=== PATIENT | male | born 1970 | race Caucasian/White ===

== ENCOUNTER 2023-08-15 11:37 | Emergency (ER) | payer BC, SELFPAY ==
[2023-08-15] VITALS (9 sets, daily range): BP systolic 116–130; BP diastolic 78–88; PULSE 63–78; RESP 18; TEMP 36.4; O2SAT 89–98; BMI 26.4
--- NOTE | 2023-08-15 12:18 | CRLHL7_ITS ---
For Patients: As a result of the Century Cures Act, medical imaging exams and procedure reports are released immediately into your electronic medical record. You may view this report before your referring provider. If you have questions, please contact your health care provider. INDICATION: Chest pain. Shortness of breath. TECHNIQUE: Chest 2 views. COMPARISON: None. FINDINGS: Cardiovascular and mediastinum: Heart size and vasculature are normal in caliber and appearance. Lungs and pleural spaces: Lungs are clear. No sign of infiltrate or mass. No sign of pleural effusion. No pneumothorax. Bones and soft tissues: No significant findings. IMPRESSION: No acute or significant findings. Dictated by Jermaine Cloud MD @ 08/15/2023 12:59:26 PM (Electronically Signed)
--- NOTE | 2023-08-15 12:19 | ED_ITS ---
HPI - General Adult General Chief complaint: Chest Pain Stated complaint: Chest pain, shortness of breath, LT hand numbness Time Seen by Provider: 08/15/23 12:11 Source: patient Mode of arrival: ambulatory Limitations: no limitations History of Present Illness HPI narrative: 53-year-old male coming in today complaining of chest pain going on for few weeks. Patient states that the pain is dull, present about 70% of the time, located on the left side of the chest. Patient states that he developed shortness of breath today after he talked to the triage nurse who told he might be having a heart attack. He states he has not felt short of breath aside from that. 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 He states that he thinks he forgets about it when he is working. He notices it when he gets home after a long day of work. Does not wake him up at night. He denies coughing. He denies any abdominal discomfort. He denies change in his pain with eating. He states that he is a smoker and when he smokes the pain seems to get worse. Past medical history significant for hyperlipidemia, not on any medications. He does smoke 5-10 cigarettes per day and has smoked for many years. Mother of lung cancer for here. He denies any family history of blood clots. He denies any recent traveling or long car rides. He denies any recent surgery. Related Data Home Medications ?Medication ?Instructions ?Recorded ?Confirmed oxycodone 5 mg tablet mg PO 08/15/23 Allergies Allergy/AdvReac Type Severity Reaction Status Date / Time No Known Drug Allergies Allergy Verified 08/15/23 11:58 Review of Systems Status of ROS: Reports: 10 or more systems reviewed and unremarkable except as noted in History and below PFSH PFS Social History Smoking Status: Current every day smoker How often do you have a drink containing alcohol: monthly or less AUDIT-C Alcohol total score: 1 Non-prescribed substance use: marijuana (any form) Exam Narrative: Exam Narrative: Well-nourished well-developed patient in no acute distress. Alert and oriented. Answers questions appropriately. Mood and affect are appropriate. Thoughts are goal oriented and rational. No tangential or magical thinking noted. Patient speaks in full sentences without needing to catch his breath. HEENT: Normocephalic atraumatic. Pupils are equally round reactive to light. Extraocular muscles are intact. Conjunctivae are moist without any icterus noted. Moist mucous membranes. Posterior pharynx is normal. Neck is soft without any lymphadenopathy or thyromegaly. No masses are appreciated. Cardiovascular: Heart is regular rate and rhythm S1 and S2 are present without any murmurs. Lungs: Clear to auscultation bilaterally no wheezes rhonchi or rales are appreciated. Patient takes deep breaths without any discomfort. I cannot reproduce his pain with palpation. Abdomen: Soft and nontender nondistended with normal bowel sounds. No guarding or rebound. No masses or organomegaly appreciated. Extremities: Bilateral lower extremities are without edema. Normal DP and PT pulses. Skin: Well perfused without any obvious rashes. Const: Vital Signs, click to edit/add: Vital Signs - 24 hr 08/15/23 11:56 08/15/23 12:29 08/15/23 12:30 Temperature 97.6 F Pulse Rate 63 67 Pulse Rate [Pulse Oximeter] 68 Respiratory Rate 18 Blood Pressure Blood Pressure [Ri ght Upper Arm] 129/82 Pulse Oximetry 98 92 89 Oxygen Delivery Me thod Room Air 08/15/23 12:32 08/15/23 12:39 Temperature Pulse Rate 69 Pulse Rate [Pulse Oximeter] Respiratory Rate Blood Pressure 130/88 Blood Pressure [Ri ght Upper Arm] Pulse Oximetry 94 Oxygen Delivery Me thod Course Course ED Course: Differential diagnoses includes coronary artery disease, pneumothorax, PE, GERD, pericarditis, chest wall pain. EKG, read by me, shows normal sinus rhythm with a pulse of 70. Blood work, including CBC, D-dimer, chemistries, LFTs, troponin, CRP, lipase, was entirely normal. Chest x-ray, read by me, does not show any acute pathology. Vital Signs Vital signs: Initial Vital Signs Respiratory Effort Normal 08/15/23 11:55 Respiratory Depth Normal 08/15/23 11:55 Respiratory Pattern Normal 08/15/23 11:55 Vital Signs Temperature 97.6 F 08/15/23 11:56 Pulse Rate 68 08/15/23 11:56 Respiratory Rate 18 08/15/23 11:56 Blood Pressure 129/82 08/15/23 11:56 Pulse Oximetry 98 08/15/23 11:56 Oxygen Delivery Method Room Air 08/15/23 11:56 Temperature 97.6 F 08/15/23 11:56 Pulse Rate 69 08/15/23 12:39 Respiratory Rate 18 08/15/23 11:56 Blood Pressure 130/88 08/15/23 12:32 Pulse Oximetry 94 08/15/23 12:39 Oxygen Delivery Method Room Air 08/15/23 11:56 Medical Decision Making MDM Narrative Medical decision making narrative: 53-year-old male with atypical chest pain going on for a couple of weeks. No evidence of any life-threatening pathology found on workup today. Recommend follow-up with primary care provider. Lab Data Lab results reviewed: Yes I reviewed the patient's lab results Labs: Lab Results 08/15/23 Range/Units 12:25 WBC 7.24 (4.50-11.00) K/uL RBC 4.61 (4.30-5.90) m/uL Hgb 14.5 (13.5-17.5) gm/dL Hct 42.3 (37.0-53.0) % MCV 92 (80-100) fL MCH 32 (26-34) pg MCHC 34 (32-36) gm/dL RDW Coeff of [place] 12.8 (11.5-15.5) % Plt Count 240 (140-440) K/uL Neut % (Auto) 65.7 (42.0-72.0) % Lymph % (Auto) 24.4 (20-44) % [place] % (Auto) 7.6 (0.0-11.0) % Eos % (Auto) 1.7 (0.0-7.0) % Baso % (Auto) 0.3 (0.0-3.0) % Neut # (Auto) 4.76 (1.7-7.0) K/uL Lymph # (Auto) 1.77 (0.90-2.90) K/uL [place] # (Auto) 0.60 (0.00-0.90) K/UL Eos # (Auto) 0.12 (0.00-0.50) K/uL Baso # (Auto) 0.02 (0.00-0.30) K/uL Abs Immat Gran (auto) 0.02 (0.00-0.30) K/uL Imm/Tot Granulo (auto) 0.3 % D-Dimer Quant (PE/DVT) < 0.27 (0.00-0.50) ug/ml Sodium 137 (135-149) mmol/L Potassium 3.8 (3.6-5.1) mmol/L Chloride 106 (96-114) mmol/L Carbon Dioxide 23 (20-32) mmol/L Anion Gap 8 (7-15) mEq/L BUN 13 (7-30) mg/dL Creatinine 0.8 (0.5-1.5) mg/dL Estimated Creat Clear 114.51 Estimated GFR 105 ml/min Glucose 104 (60-115) mg/dL Calcium 9.6 (8.4-10.6) mg/dL Total Bilirubin 0.7 (0.1-1.5) mg/dL Direct Bilirubin 0.3 (0.0-0.5) mg/dL AST 24 (12-35) U/L ALT 17 (4-50) U/L Alkaline Phosphatase 55 (40-150) U/L Troponin I < 0.01 L (0.01-0.04) ng/mL C-Reactive Protein < 0.5 L (0.5-1.0) mg/dL Total Protein 6.9 (6.0-8.3) g/dL Albumin 4.4 (3.3-5.0) g/dL Lipase 94 (23-300) U/L Imaging Data Chest x-ray: Attestation: I have reviewed the pertinent imaging results. Radiologist's impression: Chest 2 views. COMPARISON: None. FINDINGS: Cardiovascular and mediastinum: Heart size and vasculature are normal in caliber and appearance. Lungs and pleural spaces: Lungs are clear. No sign of infiltrate or mass. No sign of pleural effusion. No pneumothorax. Bones and soft tissues: No significant findings. IMPRESSION: No acute or significant findings. ECG Data Attestation: I personally reviewed and interpreted this ECG as follows: Discharge Plan Discharge Clinical Impression: Atypical chest pain Patient Disposition: Home, Self-Care Condition: Stable Additional Instructions: There is no life-threatening causes of chest pain found on your workup today. This includes heart attack, blood clots, lung infections. Recommend you follow- up with your primary care provider for further management. Likely we talked about, acid reflux can cause chest discomfort. You can start taking omeprazole, on dcsb-bss-jkihzrk medication to reduce the amount of acid in your stomach to see if this helps. Take it for 4-6 weeks. Prescriptions: No Action oxycodone 5 mg tablet PO Follow Up/Referrals: Richard Wood MD [Primary Care Provider] - Stand Alone Forms: Advaction Info Instructions
[2023-08-15 12:38] LABS: Basophils Absolute Auto 0.02 K/uL (0.00-0.30); Basophils Percent Auto 0.3 % (0.0-3.0); Eosinophils Absolute Auto 0.12 K/uL (0.00-0.50); Eosinophils Percent Auto 1.7 % (0.0-7.0); Hematocrit 42.3 % (37.0-53.0); Hemoglobin* 14.5 gm/dL (13.5-17.5); Immature Granulocytes Abs Auto 0.02 K/uL (0.00-0.30); Immature Granulocytes Pct Auto 0.3 %; Lymphocytes Absolute Auto 1.77 K/uL (0.90-2.90); Lymphocytes Percent Auto 24.4 % (20-44); Mean Corpuscular HGB Conc 34 gm/dL (32-36); Mean Corpuscular Hemoglobin 32 pg (26-34); Mean Corpuscular Volume 92 fL (80-100); Monocytes Percent Auto 7.6 % (0.0-11.0); Neutrophils Absolute Auto 4.76 K/uL (1.7-7.0); Neutrophils Percent Auto 65.7 % (42.0-72.0); Platelet Count* 240 K/uL (140-440); RDW Coefficient of Variation % 12.8 % (11.5-15.5); Red Blood Count 4.61 m/uL (4.30-5.90); White Blood Count* 7.24 K/uL (4.50-11.00)
[2023-08-15 12:58] LABS: Chloride* 106 mmol/L (96-114)
[2023-08-15 12:59] LABS: Albumin* 4.4 g/dL (3.3-5.0); Sodium* 137 mmol/L (135-149)
[2023-08-15 13:00] LABS: Potassium* 3.8 mmol/L (3.6-5.1)
[2023-08-15 13:02] LABS: Alkaline Phosphatase* 55 U/L (40-150); Anion Gap 8 mEq/L (7-15); Aspartate Amino Transferase* 24 U/L (12-35); Bilirubin Direct* 0.3 mg/dL (0.0-0.5); Bilirubin Total* 0.7 mg/dL (0.1-1.5); Carbon Dioxide* 23 mmol/L (20-32); Creatinine* 0.8 mg/dL (0.5-1.5); Est. Creatinine Clearance* 114.51; Estimated Glomerular Filt Rate 105 ml/min; Total Protein* 6.9 g/dL (6.0-8.3)
[2023-08-15 13:03] LABS: Alanine Aminotransferase* 17 U/L (4-50); Blood Urea Nitrogen* 13 mg/dL (7-30); Calcium* 9.6 mg/dL (8.4-10.6); Glucose* 104 mg/dL (60-115); Lipase* 94 U/L (23-300)
[2023-08-15 13:12] LABS: C Reactive Protein* < 0.5 mg/dL (0.5-1.0)
[2023-08-15 13:13] LABS: Slide Review Reflex No
[2023-08-15 13:14] LABS: D Dimer Quantitative* < 0.27 ug/ml (0.00-0.50)
[2023-08-15 13:15] LABS: Troponin I* < 0.01 ng/mL (0.01-0.04)
== END 2023-08-15 13:35 | disposition home or self-care (01) ==
PROVIDERS: Emergency Provider Family Medicine; PCP Family Medicine
DX: R07.89 Other chest pain (principal)
CPT/HCPCS: 36415; 71046; 80048; 80076; 83690; 84484; 85025; 85379; 86140; 93005; 94761; 99284; 99285

== ENCOUNTER 2025-02-05 11:09 | Emergency (ER) | payer OTHER, SELFPAY ==
--- OUTSIDE RECORDS SUMMARY | 2025-02-05 11:11 | XMS_ITS | Clinical Summary ---
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 12 Tablet 1Active Active Problems ProblemNoted DateDiagnosed DateTobacco abuse12/13/2010COPD (chronic obstructive pulmonary disease)02/02/2010Displacement of cervical intervertebral disc without xqnuoqsvbt26/08/2009Cervical Neuroforaminal Stenosis L>R007/01/2008Carpal tunnel mpzkqupt68/08/2007 Overview (03/03/2006): Right greater than left Unspecified asthma(493.90)03/03/2006 Resolved Problems ProblemNoted DateDiagnosed DateResolved DatePredominant disturbance of emotions Immunizations ImmunizationAdministration DatesNext DueInfluenza, IIV3 (Age >=3 years) 12/12/2010,02/01/2010,01/25/2009,01/15/2008Td (Age >=7 Years)09/12/2004 Family History Medical HistoryRelationNameCommentsGood HealthFatherCancerMotherLungRelationName StatusCommentsFatherAliveMotherDeceased (Age 42) Social History Tobacco UseTypesPacks/DayYears UsedDateSmoking Tobacco: Every PflQdpfdoetwd921 Smokeless Tobacco: Never Comments:quit 07/2008 Alcohol UseStandard Drinks/WeekCommentsYes1.7 (1 standard drink = 0.6 oz pure alcohol)Sex and Gender InformationValueDate RecordedSex Assigned at BirthNot on fileLegal XueVkzp6503/09/2012 6:02 AM CSTGender IdentityNot on fileSexual OrientationNot on fileOccupationIndustryJob Start DateJob End DateCarpenterNot on fileNot on fileNot on fileNot on fileNot on fileNot on fileNot on file Last Filed Vital Signs Vital SignReadingTime TakenCommentsBlood Ddleydyh156/9111/11/2020 11:17 PM CDT Csony659711/11/2020 11:17 PM VBIUuqmzrejigw97.7 ??C (98 ??F)11/11/2020 11:17 PM CDTRespiratory Sade962911/11/2020 11:17 PM CDTOxygen Zbzqaomoeq81%11/11/2020 11:17 PM CDTInhaled Oxygen Concentration--Ecldbm48.7 kg (200 lb)11/11/2020 11:16 PM KGLNfwtlo278.9 cm (6')11/11/2020 11:16 PM CDTBody Mass Index27.1209 11:16 PM CDT Plan of Treatment Health MaintenanceDue DateLast DoneCommentsDepression screening for age 12+ 1980BMI (ht and wt on same day) for age 18+01/10/1986Hepatitis C screening for age 18-7901/10/1986Hepatitis B series for 19+ (1 of 3 - 19+ 3-dose series) 01/10/1987Colonoscopy through age Lipids for age 45-04/27/2007Tetanus wilpgcs92/20/Pneumococcal series for age 50+ (1 of 1 - PCV)01/10/2018Zoster (shingles) series for age 50+ (1 of 2)01/10/2018 COVID-19 vaccine series (2024-26 season)2024Influenza Vaccine (#1) 510/, 02/01/2010, 01/25/2009, Additional history existsRSV vaccine for adults or (1 - 1-dose 75+ series)01/10/2043HIV for age 15-86Gbxhkcdbq11/16/2016 Procedures Procedure NamePriorityDate/TimeAssociated DiagnosisCommentsANTI HIV 1/2STAT 05/10/2015 1:05 PM CDT LIPID CFZGBJfipjei92/03/2008 9:02 AM CLAM TREADER Routine General Medical Exam from Last 3 Months or Most Recently Relevant to Health Maintenance Results * ANTI HIV 1/2 (05/10/2015 1:05 PM CDT)ComponentValueRef RangeTest Method Analysis TimePerformed AtPathologist SignatureHIV-1/HIV-2 ANTIBODYNon-Reactive Non-Reactive 05/10/2015 7:47 PM CDTALST[facility]-CENTRAL LABORATORYSpecimen (Source)Anatomical Location / LateralityCollection Method / VolumeCollection TimeReceived TimeBlood specimen (specimen)BLOOD SPECIMEN / UnknownVenipuncture / Insyczs1105/10/2015 1:05 PM CDT05/10/2015 1:10 PM CDT Narrative [facility] - 05/10/2015 7:47 PM CDT HIV-1 p24 and HIV-1/HIV-2 Ab not detected Authorizing ProviderResult TypeResult StatusBrian Eren Luke MDSEND OUTS Final ResultPerforming OrganizationAddressCity/State/ZIP CodePhone Number [facility] [address] [place] [address], [place] * (ABNORMAL) LIPID PANEL (04/27/2007 9:02 AM CLAM TREADER)ComponentValueRef RangeTest MethodAnalysis TimePerformed AtPathologist SignatureCHOLESTEROL,[id number] - 199 mg/dLFARIBAULT AMC ZBDFQZOEBWYGZDRK67<150 mg/dLFARIBAULT AMC LABHDL TFQENDUZTAT63>40 mg/dLFARIBAULT AMC LABCHOL/HDL RATIO4.40<4.51FARIBAULT AMC LABLDL PDESRTIZZDV755(H)<131 mg/dLFARCOLUMBUS REGIONAL [facility] LABPATIENT STATUSFasting ERINCOLUMBUS REGIONAL HEALTHCARE SYSTEM LABSpecimen (Source)Anatomical Location / LateralityCollection Method / VolumeCollection TimeReceived TimeBlood specimen (specimen)BLOOD SPECIMEN / Umcdbkp8304/27/2007 9:02 AM CST04/27/2007 8:49 AM CLAM TREADER Narrative Authorizing ProviderResult TypeResult StatusLary Tello TetzloffCHEMISTRYFinal ResultPerforming OrganizationAddressCity/State/ZIP CodePhone Number [facility] [address] [place] [address] from Last 3 Months or Most Recently Relevant to Health Maintenance Insurance * Guarantor: Jose Villatoro TypeRelation to PatientDate of BirthPhone Billing AddressPersonal/PkpvumRpbm1970 [address] [address] * Guarantor: Jose Villatoro TypeRelation to PatientDate of BirthPhone Billing AddressPersonal/WmmowqXmtq1970 [address] [address] * Guarantor: Jose Villatoro TypeRelation to PatientDate of BirthPhone Billing AddressMotor VtqbumqSpvb1970 [address] [address] * Guarantor: Jose Villatoro TypeRelation to PatientDate of BirthPhone Billing AddressWorkers RnezBexk1970 [address] [address] * Guarantor: [employer] IN[employer]cc[employer] TypeRelation to PatientDate of BirthPhoneBilling AddressEn[facility]/[address] [address] * Guarantor: TAMARA HOANG & TAMARA ArmstrongAccount TypeRelation to PatientDate of BirthPhoneBilling AddressVendor/InstitutionalOther [address] [employer] [address] Advance Directives * Full Code (Latest Code Status on File) Date ActivatedDate InactivatedComments10/06/2013 8:21 AM10/06/2013 12:13 PM * Full Code Date ActivatedDate InactivatedComments10/06/2013 6:02 AM10/06/2013 8:21 AM Care Teams Team MemberRelationshipSpecialtyStart DateEnd Date Nonstaff, Doctor NON STAFF DOCTOR PCP - General04/11/11
[2025-02-05 11:30] VITALS: BP 126/74; PULSE 97; RESP 18; TEMP 37.3; O2SAT 95
--- NOTE | 2025-02-05 11:42 | CRLHL7_ITS ---
For Patients: As a result of the Century Cures Act, medical imaging exams and procedure reports are released immediately into your electronic medical record. You may view this report before your referring provider. If you have questions, please contact your health care provider. INDICATION: Left upper quadrant pain trauma TECHNIQUE: CT abdomen and pelvis with 98 mL Isovue 370 intravenous contrast. COMPARISON: None. FINDINGS: Lower chest: Basilar atelectasis. Liver: Normal in size and attenuation. No suspicious masses. Gallbladder and bile ducts: No stones or inflammation. No biliary dilatation. Pancreas: Unremarkable. No mass or inflammation. Spleen: Normal in size. No masses. Adrenal glands: Normal in size. No nodules. Kidneys: Normal in size. No suspicious masses, stones, or hydronephrosis. GI tract: Unremarkable. Normal in caliber. No sign of mass or inflammation. Normal appendix. Mild diverticulosis. Vasculature: Abdominal aorta is normal in caliber. Lymph nodes: No lymphadenopathy. Peritoneum/Abdominal Wall: Small fat containing inguinal hernias. Pelvis: Unremarkable. No pelvic masses. Bones: Acute fractures of the left 7th and 8th ribs. Schmorl`s node involving T10 vertebral body with mild superior endplate compression deformity. IMPRESSION: 1. No acute findings in the abdomen or pelvis. Left 7th and 8th acute rib fractures. Please note that all CT scans at this facility use dose modulation, iterative reconstruction, and/or weight-based dosing when appropriate to reduce radiation dose to as low as reasonably achievable. Dictated by Pricilla Katz MD @ 02/05/2025 1:05:24 PM (Electronically Signed)
--- NOTE | 2025-02-05 11:42 | XR_ITS ---
Patient: ALMAZ WOODALL Facility:?[facility] RIS Patient ID:?[id number] Site Patient ID:?[id number]. Site :?[id number] Study:?XRay-Extremity Left RIBS-02/05/2025 12:21:47 PM Ordering Physician:Kaley Moeller Final Report: INDICATION: Fall TECHNIQUE: X-ray left ribs with chest three views COMPARISON: None. FINDINGS: Osseous structures: No evidence of an acute rib fracture. There are degenerative changes within the spine. Lungs and pleura: There is subsegmental right basilar atelectasis. There is no pleural effusion or pneumothorax. Heart/mediastinum: The heart size and mediastinal contours are normal. IMPRESSION: No evidence of an acute rib fracture. Subsegmental right basilar atelectasis. Dictated by Carlos Wood MD @ 02/05/2025 1:00:51 PM Signed by:?Carlos Wood MD @02/05/2025 1:00:51 PM (Electronic Signature)
--- NOTE | 2025-02-05 11:45 | ED.GENADULT ---
HPI - General Adult General Chief complaint: Fall/Minor Trauma Stated complaint: fall, L side injury Time Seen by Provider: 02/05/25 11:15 Source: patient Mode of arrival: ambulatory Limitations: no limitations History of Present Illness HPI narrative: 55-year-old male, history of tobacco use and hyperlipidemia not on any treatment, presents today with left-sided chest wall pain. Patient states that last night he slipped on ice and fell on the left side. He did not hit his head or lose consciousness. He was able to get up. He went to bed and woke up this morning with terrible pain, difficulty taking deep breaths. He does not feel short of breath. He denies any neck or back pain. He denies headache, confusion or changes in his vision. He states that the pain radiates up and down the left side of his torso. Related Data Home Medications ?Medication ?Instructions ?Recorded ?Confirmed No Known Home Medications 02/05/25 02/05/25 Allergies Allergy/AdvReac Type Severity Reaction Status Date / Time No Known Drug Allergies Allergy Verified 02/05/25 11:36 Review of Systems Status of ROS: Reports: 10 or more systems reviewed and unremarkable except as noted in History and below [facility] Social History Smoking Status: Current every day smoker How often do you have a drink containing alcohol: monthly or less AUDIT-C Alcohol total score: 1 Non-prescribed substance use: marijuana (any form) Exam Narrative: Exam Narrative: Well-nourished well-developed patient, clearly uncomfortable. Alert and oriented x3. Answers questions appropriately. Mood and affect are appropriate. Thoughts are goal oriented and rational. No tangential or magical thinking noted. Patient speaks in full sentences without needing to catch his breath. GCS is 15. Patient is speaking and breathing without difficulty. There is no obvious significant bleeding noted. HEENT: Normocephalic atraumatic. Pupils are equally round reactive to light. Extraocular muscles are intact. Conjunctivae are moist without any icterus noted. Moist mucous membranes. Neck is supple. Cardiovascular: Heart is regular rate and rhythm S1 and S2 are present without any murmurs. Lungs: Clear to auscultation bilaterally no wheezes rhonchi or rales are appreciated. Deep breaths cause discomfort on the left side of the anterolateral chest wall. Patient has tenderness to palpation of the anterior left chest wall just anterior to the axillary line as well as tenderness on the left in the axillary line. He has tenderness by the nipple as well as down by the lower ribs. Abdomen: Soft with normal bowel sounds. However, patient does have left upper quadrant tenderness. He is not able to discern if the tenderness is because of the chest wall or if it is where I am palpating directly over the spleen. Skin: Well perfused without any obvious rashes. Back: Normal appearance. Patient has no tenderness to palpation at the cervical, thoracic or lumbar spine. Patient has full range of motion at the neck with flexion, extension, side way bending and rotation without pain. Const: Vital Signs, click to edit/add: Vital Signs - 24 hr 02/05/25 11:30 Temperature 99.1 F Pulse Rate [Right Pulse Oximeter] 97 Respiratory Rate 18 Blood Pressure [Ri ght Upper Arm] 126/74 Pulse Oximetry 95 Oxygen Delivery Me thod Room Air Course Course ED Course: Given the amount of pain at the patient was in an IV was established and patient received IV fentanyl. Proceeded with x-rays of the ribs as well as an abdominal CT given his left upper quadrant tenderness. X-rays of the ribs were unremarkable. Abdominal CT was fortunately unremarkable for any organ pathology, however did show fractures of the 7th and 8th ribs. Vital Signs Vital signs: Initial Vital Signs Temperature 99.1 F 02/05/25 11:30 Temperature Source Temporal Artery Scan 02/05/25 11:30 Pulse Rate 97 02/05/25 11:30 Pulse Rhythm Regular 02/05/25 11:30 Pulse Strength 3+ Normal 02/05/25 11:30 Respiratory Rate 18 02/05/25 11:30 Blood Pressure 126/74 02/05/25 11:30 Blood Pressure Mean 91 02/05/25 11:30 Blood Pressure Position Sitting 02/05/25 11:30 Pulse Oximetry 95 02/05/25 11:30 Oxygen Delivery Method Room Air 02/05/25 11:30 Vital Signs Temperature 99.1 F 02/05/25 11:30 Pulse Rate 97 02/05/25 11:30 Respiratory Rate 18 02/05/25 11:30 Blood Pressure 126/74 02/05/25 11:30 Pulse Oximetry 95 02/05/25 11:30 Oxygen Delivery Method Room Air 02/05/25 11:30 Temperature 99.1 F 02/05/25 11:30 Pulse Rate 97 02/05/25 11:30 Respiratory Rate 18 02/05/25 11:30 Blood Pressure 126/74 02/05/25 11:30 Pulse Oximetry 95 02/05/25 11:30 Oxygen Delivery Method Room Air 02/05/25 11:30 Medications Administered Medications: Discontinued Medications Generic Name Dose Route Start Last Admin Trade Name Connerq PRN Reason Stop Dose Admin Fentanyl 50 mcg 02/05/25 11:43 02/05/25 12:00 Fentanyl 100 Mcg/2 Ml Inj IVP 02/05/25 11:44 50 mcg ONCE ONE Administration Medical Decision Making MDM Narrative Medical decision making narrative: 55-year-old male with rib fracture x2 after falling on the ice yesterday. Patient will be sent home with [employer]. We discussed daily breathing exercises and reasons to return for follow-up. Imaging Data CT scan - abdomen: Attestation: I have reviewed the pertinent imaging results. Radiologist's impression: TECHNIQUE: CT abdomen and pelvis with 98 mL Isovue 370 intravenous contrast. COMPARISON: None. FINDINGS: Lower chest: Basilar atelectasis. Liver: Normal in size and attenuation. No suspicious masses. Gallbladder and bile ducts: No stones or inflammation. No biliary dilatation. Pancreas: Unremarkable. No mass or inflammation. Spleen: Normal in size. No masses. Adrenal glands: Normal in size. No nodules. Kidneys: Normal in size. No suspicious masses, stones, or hydronephrosis. GI tract: Unremarkable. Normal in caliber. No sign of mass or inflammation. Normal appendix. Mild diverticulosis. Vasculature: Abdominal aorta is normal in caliber. Lymph nodes: No lymphadenopathy. Peritoneum/Abdominal Wall: Small fat containing inguinal hernias. Pelvis: Unremarkable. No pelvic masses. Bones: Acute fractures of the left 7th and 8th ribs. Schmorl`s node involving T10 vertebral body with mild superior endplate compression deformity. IMPRESSION: 1. No acute findings in the abdomen or pelvis. Left 7th and 8th acute rib fractures. X-ray ribs: Attestation: I have reviewed the pertinent imaging results. Radiologist's impression: TECHNIQUE: X-ray left ribs with chest three views COMPARISON: None. FINDINGS: Osseous structures: No evidence of an acute rib fracture. There are degenerative changes within the spine. Lungs and pleura: There is subsegmental right basilar atelectasis. There is no pleural effusion or pneumothorax. Heart/mediastinum: The heart size and mediastinal contours are normal. IMPRESSION: No evidence of an acute rib fracture. Subsegmental right basilar atelectasis. Discharge Plan Discharge Clinical Impression: Fracture, rib Patient Disposition: Home, Self-Care Condition: Stable Instructions: Rib Fracture (ED) Additional Instructions: Take pain medications as needed/as prescribed. Make sure to take deep breaths frequently throughout the day to expand your lungs. Return to the ER if you develop fever or shortness of breath. Twelve tablets of [place] sent to [facility]. Prescriptions: No Action No Known Home Medications Follow Up/Referrals: Richard Wood MD [Primary Care Provider, Sports Medicine] Stand Alone Forms: [employer] Info Instructions
[2025-02-05 12:00] VITALS: O2SAT 94
[2025-02-05 12:30] VITALS: PULSE 72; RESP 14; O2SAT 93
[2025-02-05 13:00] VITALS: PULSE 67; RESP 12; O2SAT 92
[2025-02-05] MEDS: HYDROCODONE-ACETAMIN 5-325 MG 1 TAB 2 TAB PO (13:11)
== END 2025-02-05 13:25 | disposition home or self-care (01) ==
PROVIDERS: Emergency Provider Family Medicine; PCP Family Medicine
DX: S22.42XA Multiple fractures of ribs, left side, initial encounter for closed fracture (principal); W00.9XXA Unspecified fall due to ice and snow, initial encounter
CPT/HCPCS: 71101; 74177; 94761; 96374; 99284; 99285; A9270; J3010; Q9967

== ENCOUNTER 2025-02-06 17:06 | Emergency (ER) | payer SELFPAY ==
[2025-02-06] VITALS (34 sets, daily range): BP systolic 129–188; BP diastolic 72–97; PULSE 68–96; RESP 11–29; TEMP 36.1; O2SAT 89–96; BMI 27.1
--- OUTSIDE RECORDS SUMMARY | 2025-02-06 17:08 | XMS_ITS | Clinical Summary ---
Author Organization [employer] [facility] Address [address] [place] [address] Care Team Providers Care Network Security Officer Name Role Phone Nonstaff, Doctor Primary Care [...] pulmonary disease)02/02/2010Displacement of cervical intervertebral disc without dgiqqfppoz49/08/2009Cervical Neuroforaminal Stenosis L>R007/01/2008Carpal tunnel ozukkcgu57/08/2007 Overview (03/03/2006): Right greater than left Unspecified asthma(493.90)03/03/2006 Resolved Problems ProblemNoted DateDiagnosed DateResolved DatePredominant disturbance of emotions Immunizations ImmunizationAdministration DatesNext DueInfluenza, IIV3 (Age >=3 years) 12/12/2010,02/01/2010,01/25/2009,01/15/2008Td (Age >=7 Years)09/12/2004 Family History Medical HistoryRelationNameCommentsGood HealthFatherCancerMotherLungRelationName StatusCommentsFatherAliveMotherDeceased (Age 42) Social History Tobacco UseTypesPacks/DayYears UsedDateSmoking Tobacco: Every QgxCvyhssemxl113 Smokeless Tobacco: Never Comments:quit 07/2008 Alcohol UseStandard Drinks/WeekCommentsYes1.7 (1 standard drink = 0.6 oz pure alcohol)Sex and Gender InformationValueDate RecordedSex Assigned at BirthNot on fileLegal ZqoCrss9403/09/2012 6:02 AM CSTGender IdentityNot on fileSexual OrientationNot on fileOccupationIndustryJob Start DateJob End DateCarpenterNot on fileNot on fileNot on fileNot on fileNot on fileNot on fileNot on file Last Filed Vital Signs Vital SignReadingTime TakenCommentsBlood Hscrzset574/9111/11/2020 11:17 PM CDT Divrw089711/11/2020 11:17 PM IOWHpechyjikex91.7 ??C (98 ??F)11/11/2020 11:17 PM CDTRespiratory Ouyw516511/11/2020 11:17 PM CDTOxygen Obpecyihtf54%11/11/2020 11:17 PM CDTInhaled Oxygen Concentration--Jjqtxu30.7 kg (200 lb)11/11/2020 11:16 PM OCROqqjfg234.9 cm (6')11/11/2020 11:16 PM CDTBody Mass Index27.1209 11:16 PM CDT Plan of Treatment Health MaintenanceDue DateLast DoneCommentsDepression screening for age 12+ 1980BMI (ht and wt on same day) for age 18+01/10/1986Hepatitis C screening for age 18-7901/10/1986Hepatitis B series for 19+ (1 of 3 - 19+ 3-dose series) 01/10/1987Colonoscopy through age Lipids for age 45-04/27/2007Tetanus lrxwidt66/20/Pneumococcal series for age 50+ (1 of 1 - PCV)01/10/2018Zoster (shingles) series for age 50+ (1 of 2)01/10/2018 COVID-19 vaccine series (2024-26 season)2024Influenza Vaccine (#1) 510/, 02/01/2010, 01/25/2009, Additional history existsRSV vaccine for adults or (1 - 1-dose 75+ series)01/10/2043HIV for age 15-29Bypuvybta73/16/2016 Procedures Procedure NamePriorityDate/TimeAssociated DiagnosisCommentsANTI HIV 1/2STAT 05/10/2015 1:05 PM CDT LIPID WPHDMStdmvxk82/03/2008 9:02 AM PATCH MACHINE OPERATOR Routine General Medical Exam from Last 3 Months or Most Recently Relevant to Health Maintenance Results * ANTI HIV 1/2 (05/10/2015 1:05 PM CDT)ComponentValueRef RangeTest Method Analysis TimePerformed AtPathologist SignatureHIV-1/HIV-2 ANTIBODYNon-Reactive Non-Reactive 05/10/2015 7:47 PM CDTAL[facility]-C[facility]TRAL LABORATORYSpecimen (Source)Anatomical Location / LateralityCollection Method / VolumeCollection TimeReceived TimeBlood specimen (specimen)BLOOD SPECIMEN / UnknownVenipuncture / Rkhidup4805/10/2015 1:05 PM CDT05/10/2015 1:10 PM CDT Narrative [facility] - 05/10/2015 7:47 PM CDT HIV-1 p24 and HIV-1/HIV-2 Ab not detected Authorizing ProviderResult TypeResult StatusBrian Eren Luke MDSEND OUTS Final ResultPerforming OrganizationAddressCity/State/ZIP CodePhone Number [facility] [address] [place] [address], [place] * (ABNORMAL) LIPID PANEL (04/27/2007 9:02 AM PATCH MACHINE OPERATOR)ComponentValueRef RangeTest MethodAnalysis TimePerformed AtPathologist SignatureCHOLESTEROL,[id number] - 199 mg/dLFARIBAULT AMC MZWSRKRGKYZSGPQF48<150 mg/dLFARIBAULT AMC LABHDL NZKDEXGOFVE56>40 mg/dLFARIBAULT AMC LABCHOL/HDL RATIO4.40<4.51FARIBAULT AMC LABLDL VJACDURNJAY260(H)<131 mg/dLFARNOVANT HEALTH LABPATIENT STATUSFasting ERINNOVANT HEALTH LABSpecimen (Source)Anatomical Location / LateralityCollection Method / VolumeCollection TimeReceived TimeBlood specimen (specimen)BLOOD SPECIMEN / Itmnbbr8504/27/2007 9:02 AM CST04/27/2007 8:49 AM PATCH MACHINE OPERATOR Narrative Authorizing ProviderResult TypeResult StatusLary Tello TetzloffCHEMISTRYFinal ResultPerforming OrganizationAddressCity/State/ZIP CodePhone Number [facility] [address] [place] [phone] from Last 3 Months or Most Recently Relevant to Health Maintenance Insurance * Guarantor: Jose Villatoro TypeRelation to PatientDate of BirthPhone Billing AddressPersonal/GbqglwAqpn1970 [address] [address] * Guarantor: Jose Villatoro TypeRelation to PatientDate of BirthPhone Billing AddressPersonal/WnfxfpOvnz1970 [address] [address] * Guarantor: Jose Villatoro TypeRelation to PatientDate of BirthPhone Billing AddressMotor BurkatiYzpw1970 [address] [address] * Guarantor: Jose Villatoro TypeRelation to PatientDate of BirthPhone Billing AddressWorkers SsspJyvg1970 [address] [address] * Guarantor: [employer] INCAccount TypeRelation to PatientDate of BirthPhoneBilling Address[facility] [place] [address] * Guarantor: TAMARA HOANG & TAMARA ArmstrongAccount TypeRelation to PatientDate of BirthPhoneBilling AddressVendor/InstitutionalOther [address] [place] [address] Advance Directives * Full Code (Latest Code Status on File) Date ActivatedDate InactivatedComments10/06/2013 8:21 AM10/06/2013 12:13 PM * Full Code Date ActivatedDate InactivatedComments10/06/2013 6:02 AM10/06/2013 8:21 AM Care Teams Team MemberRelationshipSpecialtyStart DateEnd Date Nonstaff, Doctor NON STAFF DOCTOR PCP - General04/11/11
--- NOTE | 2025-02-06 17:20 | ED.SOB ---
HPI - SOB/Dyspnea General Time Seen by Provider: 17:20 Date Seen: 02/06/25 Chief Complaint: Shortness of Breath/Dyspnea Stated Complaint: Severe Rib Pain, can't breath Time Seen by Provider: 02/06/25 17:18 Source: patient, RN notes reviewed and old records reviewed Mode of arrival: ambulatory Limitations: no limitations History of Present Illness HPI Narrative: This 55-year-old male is coming in with increasing shortness of breath, severe rib pain. He states he is having difficulty breathing. Patient did get [place] after being seen in the ER yesterday, had trauma with a fall yesterday. Was seen here in the ER. He states the [place] isn't helping, maybe has 1 left. He does smoke but has not been smoking. His pain is uncontrolled, he is short of breath. On his abdomen and pelvis CT, there was left 7th and 8th rib fracture seen. His rib x-ray report does not have the radiology read with it at this time. He had slipped on the ice and fell in his left side the night prior to presentation on the . Patient was notably 95% on room air at that time. There is notation within the ED note that the chest x-ray with left rib views was unremarkable. MD elicited complaint: shortness of breath and pain with inspiration Related Data Home Medications ?Medication ?Instructions ?Recorded ?Confirmed No Known Home Medications 02/05/25 02/05/25 Allergies Allergy/AdvReac Type Severity Reaction Status Date / Time No Known Drug Allergies Allergy Verified 02/05/25 11:36 Review of Systems Status of ROS: Reports: 6 or more systems reviewed and unremarkable except as noted in History and below PFSH PFS Social History Smoking Status: Current every day smoker How often do you have a drink containing alcohol: monthly or less AUDIT-C Alcohol total score: 1 Non-prescribed substance use: marijuana (any form) Exam Const: Vital Signs, click to edit/add: Vital Signs - 24 hr 02/06/25 17:13 02/06/25 17:24 02/06/25 17:24 Temperature 96.9 F L Pulse Rate 92 Pulse Rate [Pulse Oximeter] 96 Respiratory Rate 28 H 24 Blood Pressure 152/90 H Blood Pressure [Ri ght Upper Arm] 188/97 H Pulse Oximetry 91 90 94 Oxygen Delivery Me thod Room Air Nasal Cannula Oxygen Flow Rate 2 Fraction of Inspir ed Oxygen 02/06/25 17:25 02/06/25 17:25 02/06/25 17:30 Temperature Pulse Rate 85 78 Pulse Rate [Pulse Oximeter] Respiratory Rate 29 H 23 Blood Pressure Blood Pressure [Ri ght Upper Arm] Pulse Oximetry 90 92 89 Oxygen Delivery Me thod OxyMask Nasal Cannula Oxygen Flow Rate 2 Fraction of Inspir ed Oxygen 02/06/25 17:39 02/06/25 17:45 02/06/25 17:46 Temperature Pulse Rate 84 82 75 Pulse Rate [Pulse Oximeter] Respiratory Rate 27 H 22 25 H Blood Pressure 140/96 H 142/84 H Blood Pressure [Ri ght Upper Arm] Pulse Oximetry 92 92 93 Oxygen Delivery Me thod OxyMask OxyMask Oxygen Flow Rate 10 10 Fraction of Inspir ed Oxygen 02/06/25 18:00 02/06/25 18:00 02/06/25 18:01 Temperature Pulse Rate 77 68 Pulse Rate [Pulse Oximeter] Respiratory Rate 13 11 L Blood Pressure 132/79 Blood Pressure [Ri ght Upper Arm] Pulse Oximetry 91 92 90 Oxygen Delivery Me thod High Flow Nasal Ca nnula Oxygen Flow Rate 30 Fraction of Inspir ed Oxygen 70 02/06/25 18:15 02/06/25 18:16 02/06/25 18:30 Temperature Pulse Rate 72 77 71 Pulse Rate [Pulse Oximeter] Respiratory Rate 16 23 17 Blood Pressure 129/72 Blood Pressure [Ri ght Upper Arm] Pulse Oximetry 92 92 92 Oxygen Delivery Me thod OxyMask Oxygen Flow Rate Fraction of Inspir ed Oxygen 02/06/25 18:31 02/06/25 18:49 02/06/25 18:50 Temperature Pulse Rate 78 75 74 Pulse Rate [Pulse Oximeter] Respiratory Rate 14 Blood Pressure 141/89 H 148/89 H Blood Pressure [Ri ght Upper Arm] Pulse Oximetry 92 92 93 Oxygen Delivery Me thod Oxygen Flow Rate Fraction of Inspir ed Oxygen 02/06/25 19:00 02/06/25 19:01 02/06/25 19:02 Temperature Pulse Rate 80 79 79 Pulse Rate [Pulse Oximeter] Respiratory Rate 22 15 17 Blood Pressure 150/84 H Blood Pressure [Ri ght Upper Arm] Pulse Oximetry 91 92 93 Oxygen Delivery Me thod High Flow Nasal Ca nnula Oxygen Flow Rate 30 Fraction of Inspir ed Oxygen 70 02/06/25 19:15 02/06/25 19:16 02/06/25 19:30 Temperature Pulse Rate 81 80 82 Pulse Rate [Pulse Oximeter] Respiratory Rate 19 17 17 Blood Pressure 140/73 H Blood Pressure [Ri ght Upper Arm] Pulse Oximetry 93 94 93 Oxygen Delivery Me thod Oxygen Flow Rate Fraction of Inspir ed Oxygen 02/06/25 19:31 02/06/25 19:46 02/06/25 20:00 Temperature Pulse Rate 83 81 82 Pulse Rate [Pulse Oximeter] Respiratory Rate 15 16 14 Blood Pressure 153/82 H 142/83 H Blood Pressure [Ri ght Upper Arm] Pulse Oximetry 93 93 93 Oxygen Delivery Me thod Oxygen Flow Rate Fraction of Inspir ed Oxygen 02/06/25 20:02 02/06/25 20:15 02/06/25 20:17 Temperature Pulse Rate 82 78 82 Pulse Rate [Pulse Oximeter] Respiratory Rate 17 15 16 Blood Pressure 141/77 H 158/92 H Blood Pressure [Ri ght Upper Arm] Pulse Oximetry 93 95 94 Oxygen Delivery Me thod Oxygen Flow Rate Fraction of Inspir ed Oxygen 02/06/25 20:30 02/06/25 20:33 02/06/25 20:45 Temperature Pulse Rate 83 81 81 Pulse Rate [Pulse Oximeter] Respiratory Rate 15 14 15 Blood Pressure 146/79 H Blood Pressure [Ri ght Upper Arm] Pulse Oximetry 96 95 95 Oxygen Delivery Me thod Oxygen Flow Rate Fraction of Inspir ed Oxygen 02/06/25 20:47 02/06/25 21:00 02/06/25 21:02 Temperature Pulse Rate 82 79 82 Pulse Rate [Pulse Oximeter] Respiratory Rate 17 15 19 Blood Pressure 148/80 H 139/83 Blood Pressure [Ri ght Upper Arm] Pulse Oximetry 95 95 95 Oxygen Delivery Me thod Oxygen Flow Rate Fraction of Inspir ed Oxygen 02/06/25 21:18 Temperature Pulse Rate 83 Pulse Rate [Pulse Oximeter] Respiratory Rate 13 Blood Pressure Blood Pressure [Ri ght Upper Arm] Pulse Oximetry 93 Oxygen Delivery Me thod Oxygen Flow Rate Fraction of Inspir ed Oxygen Patient is seen as nurses are bringing back into exam room 5. He looks extremely uncomfortable, any movement is painful. He is hypoxic into the mid to low 80s with a good waveform, did see is low as 83-84% with good waveform. Oxygen is applied. Sclera clear, pupils equal round. He is able to speak but speaks in short phrases, seems tachypneic. Neck without any jugular venous distension, no masses, no crepitus. I do hear bilateral lung sounds. He is tender on the left chest wall. CV regular rate and rhythm, no murmur at this point. Abdomen is soft, nontender, nondistention and no masses. He has no lower extremity edema. Documenting provider has reviewed patient's vital signs: yes Course Course ED Course: He will be on cardiac monitoring, pulse oximetry, supplemental oxygen. We will be placing an IV, get appropriate labs. Will get an EKG. He certainly is hypoxic with a good waveform. He could have a pneumothorax, pulmonary contusion, thromboembolic disease, infectious etiology. All these need to be considered. He is actually hypertensive and makes any acute bleeding less likely from a traumatic standpoint. Currently is afebrile. He is mildly tachypneic. He certainly having pain, will give him some IV fentanyl. Reevaluation(s) Time of Reevaluation #1: 17:33 Reevaluation #1: Portable chest x-ray looked at on the machine, do not appreciate any significant pleural effusion, no pneumothorax, no significant consolidation on my preliminary review. Time of Reevaluation #2: 19:23 Reevaluation #2: Patient was started on high-flow nasal cannula to give him some humidity. He had gone up to 15 L non-rebreather to keep his oxygenation in the low 90s. He currently is at 30 liters/minute with 70% O2. He is oxygenating 90-92% with a good waveform. He states any talking causes pain in his chest. I do not observe any abnormal or paradoxical chest wall movement. He really is not significantly painful when I palpate along his anterolateral left chest wall, there is certainly no crepitus. There is no overlying skin changes such as ecchymosis. Have discussed with them that I will be talking to Rosanna for advice. He has for rib fractures and is hypoxic, his mechanics of breathing are not good. He is going to need more pain medicine, I am going to order 4 mg IV morphine, 1000 mg oral Tylenol and 5 mg oral oxycodone to work on pain management for him. Consultations Consultation #1: Have spoken with Dr. Katz in [facility]. have reviewed the case with him, discussed the for rib fractures and the hypoxia on high-flow nasal cannula. He accepts patient in transfer. Patient is updated on this, questions answered. He wondered why he had to transfer, we discussed that he is requiring high-flow nasal cannula, has 4 rib fractures. His mechanics of breathing or significantly altered in he really needs to be somewhere where this is dealt with frequently, there can be complications. He accepts transfer to [facility]. Time: 19:50 Vital Signs Vital signs: Initial Vital Signs Temperature 96.9 F L 02/06/25 17:13 Temperature Source Temporal Artery Scan 02/06/25 17:13 Pulse Rate 96 02/06/25 17:13 Respiratory Rate 28 H 02/06/25 17:13 Blood Pressure 188/97 H 02/06/25 17:13 Blood Pressure Mean 127 H 02/06/25 17:13 Pulse Oximetry 91 02/06/25 17:13 Oxygen Delivery Method Room Air 02/06/25 17:13 Vital Signs Temperature 96.9 F L 02/06/25 17:13 Pulse Rate 96 02/06/25 17:13 Respiratory Rate 28 H 02/06/25 17:13 Blood Pressure 188/97 H 02/06/25 17:13 Pulse Oximetry 91 02/06/25 17:13 Oxygen Delivery Method Room Air 02/06/25 17:13 Temperature 96.9 F L 02/06/25 17:13 Pulse Rate 83 02/06/25 21:18 Respiratory Rate 13 02/06/25 21:18 Blood Pressure 139/83 02/06/25 21:02 Pulse Oximetry 93 02/06/25 21:18 Oxygen Delivery Method High Flow Nasal Cannula 02/06/25 19:01 Oxygen Flow Rate 30 02/06/25 19:01 Fraction of Inspired Oxygen 70 02/06/25 19:01 Medications Administered Medications: Discontinued Medications Generic Name Dose Route Start Last Admin Trade Name Freq PRN Reason Stop Dose Admin Fentanyl 50 mcg 02/06/25 17:25 02/06/25 17:46 Fentanyl 100 Mcg/2 Ml Inj IVP 02/06/25 17:26 50 mcg ONCE ONE Administration Ondansetron HCl 4 mg 02/06/25 17:25 02/06/25 17:46 Ondansetron 2 Mg/Ml Inj IVP 02/06/25 17:26 4 mg ONCE ONE Administration MDM - SOB/Dyspnea Lab Data Attestation: I reviewed the patient's lab results. Labs: Lab Results 02/06/25 Range/Units 17:40 WBC 10.96 (4.50-11.00) K/uL RBC 4.80 (4.30-5.90) m/uL Hgb 14.9 (13.5-17.5) gm/dL Hct 43.7 (37.0-53.0) % MCV 91 (80-100) fL MCH 31 (26-34) pg MCHC 34 (32-36) gm/dL RDW Coeff of [place] 13.0 (11.5-15.5) % Plt Count 289 (140-440) K/uL Neut % (Auto) 72.6 H (42.0-72.0) % Lymph % (Auto) 16.8 L (20-44) % Lea % (Auto) 9.7 (0.0-11.0) % Eos % (Auto) 0.4 (0.0-7.0) % Baso % (Auto) 0.3 (0.0-3.0) % Neut # (Auto) 8.00 H (1.7-7.0) K/uL Lymph # (Auto) 1.80 (0.90-2.90) K/uL Lea # (Auto) 1.10 H (0.00-0.90) K/UL Eos # (Auto) 0.04 (0.00-0.50) K/uL Baso # (Auto) 0.03 (0.00-0.30) K/uL Abs Immat Gran (auto) 0.02 (0.00-0.30) K/uL Imm/Tot Granulo (auto) 0.2 % VBG pH 7.499 H (7.32-7.43) VBG pCO2 29 L (40-50) mmHG VBG pO2 47.4 H (25-47) mmHG VBG HCO3 22 (21-28) mmol/L Sodium 134 L (135-149) mmol/L Potassium 3.6 (3.6-5.1) mmol/L Chloride 104 (96-114) mmol/L Carbon Dioxide 21 (20-32) mmol/L Anion Gap 9 (7-15) mEq/L BUN 11 (7-30) mg/dL Creatinine 0.8 (0.5-1.5) mg/dL Estimated Creat Clear 111.82 Estimated GFR 103 ml/min Glucose 126 H (60-115) mg/dL Lactate 1.3 (0.5-1.9) mmol/L Calcium 9.3 (8.4-10.6) mg/dL Total Bilirubin 0.9 (0.1-1.5) mg/dL AST 27 (12-35) U/L ALT 24 (4-50) U/L Alkaline Phosphatase 69 (40-150) U/L C-Reactive Protein 0.6 (0.5-1.0) mg/dL Total Protein 7.8 (6.0-8.3) g/dL Albumin 4.6 (3.3-5.0) g/dL Imaging Data Chest x-ray: Attestation: I have reviewed the pertinent imaging results. My impression: As noted above, no acute effusions, infiltrate or pneumothorax noted. Did review the radiologist final read. There is a left posterior 6th rib fracture. On CT imaging from yesterday, patient had 7 and 8 rib fractures on the left side. Radiologist's impression: Patient: [facility] Facility:?[facility] Patient ID:?[id number] Site Patient ID:?[id number]. Site :?[id number] Study:?XRay-Chest PCXR-02/06/2025 5:37:16 PM Ordering Physician:Shannon Moeller Final Report: INDICATION: Hypoxia TECHNIQUE: Single-view chest. COMPARISON: COMPARISONchest x-ray FINDINGS: The lungs are clear. The heart, mediastinum and pulmonary vessels are of normal size. There is no evidence of pleural disease. Possible Left posterior 6th rib fracture IMPRESSION: No acute pulmonary findings. Possible left posterior 6th rib fracture Dictated by Pricilla Katz MD @ 02/06/2025 6:14:01 PM (Electronic Signature) CT scan - chest: Attestation: I have reviewed the pertinent imaging results. Radiologist's impression: Patient: [facility] Facility:?[facility] Patient ID:?[id number] Site Patient ID:?[id number]. Site :?1970 Study:?CT-Chest Angio PE STUDY-02/06/2025 6:48:16 PM Ordering Physician:Shannon Moeller Final Report: INDICATION: Hypoxia fall rib fractures TECHNIQUE: CT chest was acquired with 95 cc Isovue 370 IV contrast. Coronal and MIP reconstructions were performed. COMPARISON: None. FINDINGS: Lungs and pleura: Small effusions bilaterally bibasilar atelectasis. Fluid opacified right interlobar bronchus right lower lobe bronchi, right middle lobe bronchi and partial opacification of left lower lobe bronchi there is bronchial wall thickening. Left upper lobe granuloma. Heart and vasculature: Heart size is normal. Thoracic aorta and pulmonary artery are normal in caliber. No pulmonary emboli. Lymph nodes/mediastinum: No mediastinal, hilar, or axillary adenopathy. Chest wall: No masses. Upper abdomen: Normal. Bones: Left acute 6th through 9th rib fractures. Schmorl`s node with mild compression deformity of the T10 vertebral body without definite acute fracture seen. IMPRESSION: 1. No pulmonary emboli. 2. Small effusions bilaterally. Fluid opacification of the right interlobar bronchi and right lower lobe bronchi. Partial opacification of the right middle lobe and left lower lobe bronchi. Bronchial wall thickening in the lower lobes. 3. Left 6th through 9th rib fractures. Please note that all CT scans at this facility use dose modulation, iterative reconstruction, and/or weight-based dosing when appropriate to reduce radiation dose to as low as reasonably achievable. Dictated by Pricilla Katz MD @ 02/06/2025 7:06:48 PM (Electronic Signature) ECG Data Attestation: I personally reviewed and interpreted this ECG as follows: (Normal sinus rhythm, 70 beats per minute. No ischemia, no infarct.) ECG interpretation date: 02/06/25 ECG interpretation time: 19:30 Prior ECG tracings: available for review Discharge Plan Discharge Clinical Impression: Hypoxia Multiple fractures of ribs Qualifiers: Encounter type: subsequent encounter Fracture type: closed Laterality: left Fracture healing: with routine healing Qualified Code(s): S22.42XD - Multiple fractures of ribs, left side, subsequent encounter for fracture with routine healing Patient Disposition: Xfer Acute Care Hospital Discharge Location: [facility] Procedures ABG Interpretation ABG Results: 02/06/25 17:40 VBG pH 7.499 H VBG pCO2 29 L VBG pO2 47.4 H VBG HCO3 22
--- NOTE | 2025-02-06 17:24 | CRLHL7_ITS ---
For Patients: As a result of the Cures Act, medical imaging exams and procedure reports are released immediately into your electronic medical record. You may view this report before your referring provider. If you have questions, please contact your health care provider. INDICATION: Hypoxia TECHNIQUE: Single-view chest. COMPARISON: COMPARISONchest x-ray FINDINGS: The lungs are clear. The heart, mediastinum and pulmonary vessels are of normal size. There is no evidence of pleural disease. Possible Left posterior 6th rib fracture IMPRESSION: No acute pulmonary findings. Possible left posterior 6th rib fracture Dictated by Pricilla Katz MD @ 02/06/2025 6:14:01 PM (Electronically Signed)
[2025-02-06 17:46] LABS: HCO3 VBG 22 mmol/L (21-28); Lactate* 1.3 mmol/L (0.5-1.9); PCO2 VBG 29 mmHG (40-50); PO2 VBG 47.4 mmHG (25-47); pH VBG 7.499 (7.32-7.43)
[2025-02-06] MEDS: ONDANSETRON 2 MG/ML inj 4 MG IVP (17:46)
[2025-02-06 17:52] LABS: Hematocrit* 43.7 % (37.0-53.0); Hemoglobin* 14.9 gm/dL (13.5-17.5); Immature Granulocytes Abs Auto 0.02 K/uL (0.00-0.30); Immature Granulocytes Pct Auto 0.2 %; Mean Corpuscular HGB Conc 34 gm/dL (32-36); Mean Corpuscular Hemoglobin 31 pg (26-34); Mean Corpuscular Volume 91 fL (80-100); RDW Coefficient of Variation % 13.0 % (11.5-15.5); Red Blood Count* 4.80 m/uL (4.30-5.90); White Blood Count* 10.96 K/uL (4.50-11.00)
[2025-02-06 17:55] LABS: Lymphocytes Absolute Auto 1.80 K/uL (0.90-2.90); Slide Review Reflex No
--- NOTE | 2025-02-06 18:05 | CRLHL7_ITS ---
For Patients: As a result of the Century Cures Act, medical imaging exams and procedure reports are released immediately into your electronic medical record. You may view this report before your referring provider. If you have questions, please contact your health care provider. INDICATION: Hypoxia fall rib fractures TECHNIQUE: CT chest was acquired with 95 cc Isovue 370 IV contrast. Coronal and MIP reconstructions were performed. COMPARISON: None. FINDINGS: Lungs and pleura: Small effusions bilaterally bibasilar atelectasis. Fluid opacified right interlobar bronchus right lower lobe bronchi, right middle lobe bronchi and partial opacification of left lower lobe bronchi there is bronchial wall thickening. Left upper lobe granuloma. Heart and vasculature: Heart size is normal. Thoracic aorta and pulmonary artery are normal in caliber. No pulmonary emboli. Lymph nodes/mediastinum: No mediastinal, hilar, or axillary adenopathy. Chest wall: No masses. Upper abdomen: Normal. Bones: Left acute 6th through 9th rib fractures. Schmorl`s node with mild compression deformity of the T10 vertebral body without definite acute fracture seen. IMPRESSION: 1. No pulmonary emboli. 2. Small effusions bilaterally. Fluid opacification of the right interlobar bronchi and right lower lobe bronchi. Partial opacification of the right middle lobe and left lower lobe bronchi. Bronchial wall thickening in the lower lobes. 3. Left 6th through 9th rib fractures. Please note that all CT scans at this facility use dose modulation, iterative reconstruction, and/or weight-based dosing when appropriate to reduce radiation dose to as low as reasonably achievable. Dictated by Prciilla Katz MD @ 02/06/2025 7:06:48 PM (Electronically Signed)
[2025-02-06 18:13] LABS: Albumin* 4.6 g/dL (3.3-5.0); Chloride* 104 mmol/L (96-114); Potassium* 3.6 mmol/L (3.6-5.1); Sodium* 134 mmol/L (135-149)
[2025-02-06 18:16] LABS: Alanine Aminotransferase* 24 U/L (4-50); Alkaline Phosphatase* 69 U/L (40-150); Anion Gap 9 mEq/L (7-15); Aspartate Amino Transferase* 27 U/L (12-35); Bilirubin Total* 0.9 mg/dL (0.1-1.5); Blood Urea Nitrogen* 11 mg/dL (7-30); Carbon Dioxide* 21 mmol/L (20-32); Creatinine* 0.8 mg/dL (0.5-1.5); Est. Creatinine Clearance* 111.82; Estimated Glomerular Filt Rate 103 ml/min; Total Protein* 7.8 g/dL (6.0-8.3)
[2025-02-06 18:17] LABS: Calcium* 9.3 mg/dL (8.4-10.6); Glucose* 126 mg/dL (60-115)
== END 2025-02-06 21:43 | disposition short-term general hospital (02) ==
PROVIDERS: Emergency Provider Family Medicine; PCP Family Medicine
DX: R09.02 Hypoxemia (principal); S22.42XD Multiple fractures of ribs, left side, subsequent encounter for fracture with routine healing; F17.210 Nicotine dependence, cigarettes, uncomplicated; W00.0XXD Fall on same level due to ice and snow, subsequent encounter; Y93.01 Activity, walking, marching and hiking
CPT/HCPCS: 36415; 71045; 71275; 80053; 82803; 83605; 85025; 86140; 93005; 96374; 96375; 99285; J2405; J3010; Q9967

== ENCOUNTER 2025-02-06 21:22 | Outpatient (CLI) | payer OTHER, SELFPAY | END 2025-02-06 21:23 | disposition home or self-care (01) | LOC: AMB 03-01 01:12 | PROVIDERS: PCP Family Medicine; Visit Provider Family Medicine | DX: S22.49XA Multiple fractures of ribs, unspecified side, initial encounter for closed fracture (principal) | CPT/HCPCS: A0425; A0434 ==

== ENCOUNTER 2025-02-12 10:20 | Emergency (ER) | payer SELFPAY ==
--- OUTSIDE RECORDS SUMMARY | 2025-02-12 10:22 | XMS_ITS | Clinical Summary ---
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 12 Tablet 11/11/2020ctive Active Problems ProblemNoted DateDiagnosed DateTobacco abuse12/13/2010COPD (chronic obstructive pulmonary disease)02/02/2010Displacement of cervical intervertebral disc without pkeeqppird84/08/2009Cervical Neuroforaminal Stenosis L>R007/01/2008Carpal tunnel xikznrzq51/08/2007 Overview (03/03/2006): Right greater than left Unspecified asthma(493.90)03/03/2006 Resolved Problems ProblemNoted DateDiagnosed DateResolved DatePredominant disturbance of emotions Encounters DateTypeDepartmentCare OlzzEkauhzjdpaw94/14/2025Orders Only [facility] Scanner 1 scan: (1-Ord) [facility], CT ANGIO CHEST, Orders Only [facility] Scanner 1 scan: (1-Ord) [facility], XR CHEST, Orders Only [facility] Scanner 1 scan: (1-Ord) [facility], XR RIBS LT MIN 3VIEW, 5104/08/2024 Orders Only [facility] Scanner 1 scan: (1-Ord) [place], CT ABDOMEN PELVIS W CON, 02/05/2025from Last 3 Months Immunizations ImmunizationAdministration DatesNext DueInfluenza, IIV3 (Age >=3 years) 12/12/2010,02/01/2010,01/25/2009,01/15/2008Td (Age >=7 Years)09/12/2004 Family History Medical HistoryRelationNameCommentsGood HealthFatherCancerMotherLungRelationName StatusCommentsFatherAliveMotherDeceased (Age 42) Social History Tobacco UseTypesPacks/DayYears UsedDateSmoking Tobacco: Every BjwHykgpbbffq328 Smokeless Tobacco: Never Comments:quit 07/2008 Alcohol UseStandard Drinks/WeekCommentsYes1.7 (1 standard drink = 0.6 oz pure alcohol)Sex and Gender InformationValueDate RecordedSex Assigned at BirthNot on fileLegal BegCnkz8303/09/2012 6:02 AM CSTGender IdentityNot on fileSexual OrientationNot on fileOccupationIndustryJob Start DateJob End DateCarpenterNot on fileNot on fileNot on fileNot on fileNot on fileNot on fileNot on file Last Filed Vital Signs Vital SignReadingTime TakenCommentsBlood Zgirznvb333/9109 11:17 PM CDT Jbncu210311/11/2020 11:17 PM NSLIgftrqwsvqk19.7 ??C (98 ??F)11/11/2020 11:17 PM CDTRespiratory Jsjb744011/11/2020 11:17 PM CDTOxygen Qnnoekkacy97%11/11/2020 11:17 PM CDTInhaled Oxygen Concentration--Ytvcul63.7 kg (200 lb)11/11/2020 11:16 PM LXTHlhtzb719.9 cm (6')11/11/2020 11:16 PM CDTBody Mass Index27.1209 11:16 PM CDT Plan of Treatment Health MaintenanceDue DateLast DoneCommentsDepression screening for age 12+ 1980BMI (ht and wt on same day) for age 18+01/10/1986Hepatitis C screening for age 18-7901/10/1986Hepatitis B series for 19+ (1 of 3 - 19+ 3-dose series) 01/10/1987Colonoscopy through age 7501/10/2013Lipids for age 45-7501/10/2013 04/27/2007Tetanus lfihmle76/20/Pneumococcal series for age 50+ (1 of 1 - PCV)01/10/2018Zoster (shingles) series for age 50+ (1 of 2)01/10/2018 COVID-19 vaccine series ( - 2024- season)2024Influenza Vaccine (#1) , 02/01/2010, 01/25/2009, Additional history existsRSV vaccine for adults or (1 - 1-dose 75+ series)01/10/2043HIV for age 15-51Cgrdalhtc28/16/2016 Procedures Procedure NamePriorityDate/TimeAssociated DiagnosisCommentsSCAN-CT HBXOZHAJJFSFOK56/14/2025 12:00 AM CSTSCAN-RADIOLOGY PABWYX8402/06/2025 12:00 AM SUPERVISOR AIRPLANE FLIGHT ATTENDANT SCAN-RADIOLOGY GVRSXU5802/05/2025 12:00 AM SUPERVISOR AIRPLANE FLIGHT ATTENDANT SCAN-CT NKVAYYVTVYEGKY09/13/2025 12:00 AM CSTANTI HIV 1/4WVVK8805/10/2015 1:05 PM CDT LIPID THRRWYsdrtlc58/03/2008 9:02 AM SUPERVISOR AIRPLANE FLIGHT ATTENDANT Routine General Medical Exam from Last 3 Months or Most Recently Relevant to Health Maintenance Results * SCAN-RADIOLOGY REPORT (02/06/2025 12:00 AM SUPERVISOR AIRPLANE FLIGHT ATTENDANT) Only the most recent of2 resultswithin the time period is included. Anatomical RegionLateralityModalityOther Narrative Authorizing ProviderResult TypeResult StatusScannerOTHERFinal Result * SCAN-CT INTERPRETATION (02/06/2025 12:00 AM SUPERVISOR AIRPLANE FLIGHT ATTENDANT) Only the most recent of2 resultswithin the time period is included. Anatomical RegionLateralityModalityOther Narrative Authorizing ProviderResult TypeResult StatusScannerOTHERFinal Result * ANTI HIV 1/2 (05/10/2015 1:05 PM CDT)ComponentValueRef RangeTest Method Analysis TimePerformed AtPathologist SignatureHIV-1/HIV-2 ANTIBODYNon-Reactive Non-Reactive 05/10/2015 7:47 PM CDTALWASHINGTON REGIONAL MEDICAL CENTERCENTRAL LABORATORYSpecimen (Source)Anatomical Location / LateralityCollection Method / VolumeCollection TimeReceived TimeBlood specimen (specimen)BLOOD SPECIMEN / UnknownVenipuncture / Bpgyhck5005/10/2015 1:05 PM CDT05/10/2015 1:10 PM CDT Narrative [facility] - 05/10/2015 7:47 PM CDT HIV-1 p24 and HIV-1/HIV-2 Ab not detected Authorizing ProviderResult TypeResult StatusBrgarret Luke MDSEND OUTS Final ResultPerforming OrganizationAddressCity/State/ZIP CodePhone Number [facility] [address] [place] [address], * (ABNORMAL) LIPID PANEL (04/27/2007 9:02 AM SUPERVISOR AIRPLANE FLIGHT ATTENDANT)ComponentValueRef RangeTest MethodAnalysis TimePerformed AtPathologist SignatureCHOLESTEROL,[id number] - 199 mg/dLFARIBAULT [facility] QCFVGONAZHRWTRHL57<150 mg/dLFARIBAULT [facility] LABHDL GYUVOYSLONR13>40 mg/dLFARIBAULT [facility] LABCHOL/HDL RATIO4.40<4.51FARIBAULT [facility] LABLDL SQYMQRTPKYC563(H)<131 mg/dLFARIBABAY HARBOR HOSPITAL LABPATIENT STATUSFasting [facility] LABSpecimen (Source)Anatomical Location / LateralityCollection Method / VolumeCollection TimeReceived TimeBlood specimen (specimen)BLOOD SPECIMEN / Nfrnprk8304/27/2007 9:02 AM CST04/27/2007 8:49 AM SUPERVISOR AIRPLANE FLIGHT ATTENDANT Narrative Authorizing ProviderResult TypeResult StatusLary CharlesoffCHEMISTRYFinal ResultPerforming OrganizationAddressCity/State/ZIP CodePhone Number [facility] [address] [place] [phone] from Last 3 Months or Most Recently Relevant to Health Maintenance Insurance * Guarantor: Jose Villatoro TypeRelation to PatientDate of BirthPhone Billing AddressPersonal/JngptiEpve1970 [address] [address] * Guarantor: Jose Villatoro TypeRelation to PatientDate of BirthPhone Billing AddressPersonal/UyffunVioi1970 [address] [address] * Guarantor: Jose Villatoro TypeRelation to PatientDate of BirthPhone Billing AddressMotor MgwozwiAzmb1970 [address] [address] * Guarantor: Jose Villatoro TypeRelation to PatientDate of BirthPhone Billing AddressWorkers FugrBnhd1970 [address] [address] * Guarantor: [employer] INCAccount TypeRelation to PatientDate of BirthPhoneBilling Address[facility] [address] [place] [address] * Guarantor: TAMARA HOANG & TAMARA ArmstrongAccount TypeRelation to PatientDate of BirthPhoneBilling AddressVendor/InstitutionalOther [address] [place] [address] Advance Directives * Full Code (Latest Code Status on File) Date ActivatedDate InactivatedComments10/06/2013 8:21 AM10/06/2013 12:13 PM * Full Code Date ActivatedDate InactivatedComments10/06/2013 6:02 AM10/06/2013 8:21 AM Care Teams Team MemberRelationshipSpecialtyStart DateEnd Date Nonstaff, Doctor NON STAFF DOCTOR PCP - General04/11/11
[2025-02-12 10:32] VITALS: BP 121/80; PULSE 93; RESP 20; TEMP 36.8; O2SAT 93; BMI 26.7
--- NOTE | 2025-02-12 11:07 | ED.GENADULT ---
HPI - General Adult General Chief complaint: Rib Pain Stated complaint: 4 broken ribs left side Time Seen by Provider: 02/12/25 10:46 History of Present Illness HPI narrative: Patient is a 55-year-old gentleman who had a fall recently and has 4 rib fractures on the left. Patient was sent to [place] 3 nights ago and spent time there as he was hypoxic. Patient is no longer hypoxic and left against medical advice last night due to what he felt was inadequate housing at [place]. Patient is breathing fine and is no longer hypoxic. He is having trouble keeping his pain under control. He states the pain is located in the left mid clavicular line in the lower ribcage. This is consistent with his previous fractures. No other concerns are noted patient is otherwise feeling well but would like to help with pain control. Related Data Previous Rx's ?Medication ?Instructions ?Recorded oxycodone-acetaminophen 5 mg-325 1 tab PO Q6H PRN pain #30 tabs 02/12/25 mg tablet (Percocet) Allergies Allergy/AdvReac Type Severity Reaction Status Date / Time No Known Drug Allergies Allergy Verified 02/12/25 10:32 Review of Systems Status of ROS: Reports: 10 or more systems reviewed and unremarkable except as noted in History and below [facility] Social History Smoking Status: Current every day smoker How often do you have a drink containing alcohol: monthly or less AUDIT-C Alcohol total score: 1 Non-prescribed substance use: marijuana (any form) Exam Narrative: Exam Narrative: EXAM GENERAL: Patient appears comfortable and well. EYES: No scleral icterus. LYMPH: No supraclavicular or cervical lymphadenopathy. SKIN: Visible skin seen during exam normal or with benign process only. EXT: No dependent lower extremity pedal edema. HEART: Regular rate and rhythm with no murmurs, rubs, or gallops. LUNGS: Clear to auscultation bilaterally with no crackles or wheezes. ABD: Soft, non tender, non distended. PSYCH: Good eye contact, speech is not pressured. Chest wall is tender to palpation on the left. Const: Vital Signs, click to edit/add: Vital Signs - 24 hr 02/12/25 10:32 Temperature 98.3 F Pulse Rate [Pulse Oximeter] 93 Respiratory Rate 20 Blood Pressure [Ri ght Upper Arm] 121/80 Pulse Oximetry 93 Oxygen Delivery Me thod Room Air Course Vital Signs Vital signs: Initial Vital Signs Temperature 98.3 F 02/12/25 10:32 Temperature Source Temporal Artery Scan 02/12/25 10:32 Pulse Rate 93 02/12/25 10:32 Respiratory Rate 20 02/12/25 10:32 Blood Pressure 121/80 02/12/25 10:32 Blood Pressure Mean 93 02/12/25 10:32 Pulse Oximetry 93 02/12/25 10:32 Oxygen Delivery Method Room Air 02/12/25 10:32 Vital Signs Temperature 98.3 F 02/12/25 10:32 Pulse Rate 93 02/12/25 10:32 Respiratory Rate 20 02/12/25 10:32 Blood Pressure 121/80 02/12/25 10:32 Pulse Oximetry 93 02/12/25 10:32 Oxygen Delivery Method Room Air 02/12/25 10:32 Temperature 98.3 F 02/12/25 10:32 Pulse Rate 93 02/12/25 10:32 Respiratory Rate 20 02/12/25 10:32 Blood Pressure 121/80 02/12/25 10:32 Pulse Oximetry 93 02/12/25 10:32 Oxygen Delivery Method Room Air 02/12/25 10:32 Medical Decision Making MDM Narrative Medical decision making narrative: Patient is a 55-year-old gentleman with known history of rib fractures. I did review his previous imaging. He did spend some time at [facility] following his fall and is no longer hypoxic on room air. He does not have adequate pain control at home. I do not believe he needs further evaluation due to the extensive evaluation these had. I do think he needs pain control I did send in Percocet for him for the next several days with primary care follow-up. He will continue his aggressive pulmonary toilet and follow up if symptoms worsen. Discharge Plan Discharge Clinical Impression: Fracture, rib Patient Disposition: Home, Self-Care Condition: Stable Instructions: Rib Fracture (ED) Additional Instructions: Percocet as directed Continue current care. Follow-up with your doctor this coming week. Activity Level: No Restrictions Discharge Diet: Regular Prescriptions: New oxycodone-acetaminophen [Percocet] 5-325 mg tablet 1 tab PO Q6H PRN (Reason: pain) Qty: 30 0RF Follow Up/Referrals: Richard Wood MD [Primary Care Provider, Sports Medicine] Stand Alone Forms: [employer] Info Instructions
== END 2025-02-12 11:25 | disposition home or self-care (01) ==
LOC: ED 11:22
PROVIDERS: Emergency Provider Internal Medicine; PCP Family Medicine
DX: S22.42XA Multiple fractures of ribs, left side, initial encounter for closed fracture (principal)
CPT/HCPCS: 99283